=== PATIENT | female | born 1980 | race Caucasian/White ===

== ENCOUNTER 2016-05-03 16:15 | Emergency (ER) | payer OTHER ==
[~2016-05-03] VITALS: Ht 162.6 cm; Wt 101.5 kg
[2016-05-03 16:28] VITALS: BP 140/94
== END 2016-05-03 20:14 | disposition left against medical advice (07) ==
LOC: EMS 16:16
DX: R51 Headache (principal); Z53.21 Procedure and treatment not carried out due to patient leaving prior to being seen by health care provider

== ENCOUNTER 2016-10-08 20:22 | Emergency (ER) | payer OTHER ==
[~2016-10-08] VITALS: Ht 160 cm; Wt 101.5 kg
[2016-10-08 20:42] VITALS: BP 139/96
== END 2016-10-08 21:27 | disposition home or self-care (01) ==
LOC: EMS 20:57
DX: B07.0 Plantar wart (principal); R03.0 Elevated blood-pressure reading, without diagnosis of hypertension; Z88.6 Allergy status to analgesic agent; Z90.49 Acquired absence of other specified parts of digestive tract
CPT/HCPCS: 99281

== ENCOUNTER 2022-02-12 15:33 | Emergency (ER) | payer MEDICAID, OTHER ==
[~2022-02-12] VITALS: Ht 160 cm; Wt 100.0 kg
[2022-02-12] MEDS ORDERED: ASPI-1444 PO (15:46)
[2022-02-12] MEDS ORDERED: DULA1.5P SQ (15:46)
[2022-02-12] MEDS ORDERED: SUMA50TA17 PO (15:46)
[2022-02-12] MEDS ORDERED: INSU100I68 SQ (15:46)
[2022-02-12] MEDS ORDERED: METF-446 PO (15:46)
[2022-02-12] MEDS ORDERED: EMPA25TA3 PO (15:46)
[2022-02-12 16:06] LABS: BASOPHILS % (AUTO) 0.3 % (0.0-2.0); EOSINOPHILS % (AUTO) 0.4 % (1.0-6.0); HEMATOCRIT 42.9 % (36-46); HEMOGLOBIN 13.7 g/dL (12.0-16.0); LYMPHOCYTES % (AUTO) 6.1 % (22.0-44.0); MEAN CORPUSCULAR HEMOGLOBIN 26.7 pg (26.0-34.0); MEAN CORPUSCULAR HGB CONC 31.9 G/dL (31.0-37.0); MEAN CORPUSCULAR VOLUME 84 fL (80-100); MONOCYTES # (AUTO) 0.5 K/uL (0.1-1.0); MONOCYTES % (AUTO) 2.9 % (2.0-9.0); NEUTROPHILS # (AUTO) 14.9 K/uL (1.8-7.7); PLATELET COUNT (AUTO) 321 K/uL (150-450); RED BLOOD CELL COUNT(AUTO) 5.12 MIL/uL (4.00-5.20); RED CELL DISTRIBUTION WIDTH 14.8 % (11.5-14.5)
[2022-02-12 16:11] LABS: NEUTROPHILS % (AUTO) 90.3 % (40.0-70.0)
[2022-02-12] MEDS ORDERED: ACETAMINOPHEN 500 MG TABLET PO ONE (16:15)
[2022-02-12] MEDS ORDERED: SODIUM CHLORIDE 0.9% 1,000 ML IV ONE (16:15)
[2022-02-12 16:19] LABS: ANION GAP 11 mmol/L (8-16); CARBON DIOXIDE 24 mmol/L (22-29); CHLORIDE 101 mmol/L (98-107); GLUCOSE,RANDOM 157 mg/dL (70-110); SODIUM SERUM 136 mmol/L (136-145); UREA NITROGEN, BLOOD 15 mg/dL (7-18)
[2022-02-12 16:20] LABS: GLOMERULAR FILTR. RATE CALC > 60 mL/min (>60)
[2022-02-12 16:42] LABS: ALANINE AMINOTRANSFERASE 21 U/L (12-78); ALKALINE PHOSPHATASE 87 U/L (46-116); ASPARTATE AMINOTRANSFERASE 16 U/L (15-37); BILIRUBIN,TOTAL 0.9 mg/dL (0.1-1.0); CREATINE KINASE, TOTAL ONLY 66 U/L (26-192); HCG,QUANTITATIVE < 1 mIU/mL (0-6); TOTAL PROTEIN, SERUM 9.1 g/dL (6.4-8.2)
[2022-02-12 16:51] LABS: B-TYPE NATRIURETIC PEPTIDE < 5 pg/mL (0-100)
[2022-02-12 17:30] LABS: APPEARANCE,URINE HAZY (CLEAR); BILIRUBIN,URINE NEGATIVE (NEGATIVE); GLUCOSE, URINE (UA) >=1000 mg/dL (NEGATIVE); KETONES,URINE 40-60 mg/dL (NEGATIVE); LEUKOCYTE ESTERASE ,URINE LARGE (NEGATIVE); NITRATE,URINE NEGATIVE (NEGATIVE); OCCULT BLOOD,URINE NEGATIVE (NEGATIVE); PH,URINE 5.5 (5.0-8.0); PROTEIN,URINE TRACE mg/dL (NEGATIVE); SPECIFIC GRAVITIY, URINE 1.049 (1.003-1.030); UROBILINOGEN,URINE <=1.0 mg/dL (<=1.0)
[2022-02-12] MEDS ORDERED: CYCLOBENZAPRINE HCL 10 MG TABLET PO ONE (17:30)
[2022-02-12] MEDS ORDERED: METOCLOPRAMIDE HCL 5 MG/ML 2 ML VIAL IVP ONE (17:30)
[2022-02-12] MEDS ORDERED: DiphenhydrAMINE HCL 50 MG/ML VIAL IVP ONE (17:30)
[2022-02-12 17:57] LABS: COVID AG,FIA SOURCE NASAL SWAB
[2022-02-12 17:59] LABS: RBC,URINE 0-2 /HPF (0-2)
[2022-02-12 18:00] LABS: AMORPHOUS SEDIMENT,UR Few /LPF (None Seen); BACTERIA,URINE Few /HPF (None Seen); SQUAMOUS EPITHELIAL CELL,UR Few /LPF (None Seen)
[2022-02-12 18:13] LABS: INFLUENZA TYPE A NEGATIVE FOR TYPE A (NEGATIVE); INFLUENZA TYPE B NEGATIVE FOR TYPE B (NEGATIVE)
[2022-02-12] MEDS ORDERED: SULFAMETHOX/TRIMETH DS 800-160 MG/TABLET PO ONE (18:30)
[2022-02-12 19:48] VITALS: BP 131/87
[2022-02-12] MEDS ORDERED: SULF-261 PO (19:49)
== END 2022-02-12 20:03 | disposition home or self-care (01) ==
LOC: EMS 15:55
DX: N39.0 Urinary tract infection, site not specified (principal); G43.909 Migraine, unspecified, not intractable, without status migrainosus; R07.9 Chest pain, unspecified; E11.9 Type 2 diabetes mellitus without complications; Z88.5 Allergy status to narcotic agent; Z88.6 Allergy status to analgesic agent; Z90.49 Acquired absence of other specified parts of digestive tract; Z98.51 Tubal ligation status; Z20.822 Contact with and (suspected) exposure to COVID-19
CPT/HCPCS: 99285; 96374; 71045; 96361; 96375; 87426; 80053; 81001; 82550; 82962; 83880; 84484; 84702; 85025; 85379; 87804; 36415; 87086; 87186; 93005; J1200; J2765; J7030

== ENCOUNTER 2022-06-06 15:55 | Emergency (ER) | payer MEDICAID ==
[~2022-06-06] VITALS: Ht 177.8 cm; Wt 95.9 kg
[~2022-06-06 15:55] MED LIST: ASPI-1444 PO; DULA1.5P SQ; EMPA25TA3 PO; INSU100I68 SQ; METF-446 PO; SULF-261 PO; SUMA50TA17 PO
[2022-06-06 15:57] VITALS: BP 150/94
[2022-06-06] MEDS ORDERED: HYDROCODONE/ACETAMINOPHEN 5-325 MG TABLET PO ONE (18:45)
[2022-06-06] MEDS ORDERED: DIAZ2TAB3 PO (18:50)
[2022-06-06] MEDS ORDERED: CYCL-448 PO (19:46)
== END 2022-06-06 20:04 | disposition home or self-care (01) ==
LOC: EMS 15:55
DX: S13.4XXA Sprain of ligaments of cervical spine, initial encounter (principal); E11.9 Type 2 diabetes mellitus without complications; G43.909 Migraine, unspecified, not intractable, without status migrainosus; Z90.49 Acquired absence of other specified parts of digestive tract; Z98.51 Tubal ligation status; Z88.6 Allergy status to analgesic agent; Z88.5 Allergy status to narcotic agent; V49.9XXA Car occupant (driver) (passenger) injured in unspecified traffic accident, initial encounter; Y93.89 Activity, other specified; Y92.89 Other specified places as the place of occurrence of the external cause; Y99.8 Other external cause status
CPT/HCPCS: 72040; 72072; 82962; 99283

== ENCOUNTER 2023-02-05 13:23 | Emergency (ER) | payer MEDICAID ==
[~2023-02-05] VITALS: Ht 160 cm; Wt 96.8 kg
[~2023-02-05 13:23] MED LIST changes: +CYCL-448 PO; +DIAZ2TAB3 PO; -INSU100I68 SQ; -SULF-261 PO; -SUMA50TA17 PO
[2023-02-05 14:37] LABS: BASOPHILS % (AUTO) 0.1 % (0.0-2.0); EOSINOPHILS % (AUTO) 2.1 % (1.0-6.0); HEMATOCRIT 35.8 % (36-46); HEMOGLOBIN 11.7 g/dL (12.0-16.0); LYMPHOCYTES # (AUTO) 2.4 K/uL (1.0-4.8); LYMPHOCYTES % (AUTO) 20.4 % (22.0-44.0); MEAN CORPUSCULAR HGB CONC 32.8 G/dL (31.0-37.0); MEAN CORPUSCULAR VOLUME 85 fL (80-100); MONOCYTES # (AUTO) 0.6 K/uL (0.1-1.0); MONOCYTES % (AUTO) 5.1 % (2.0-9.0); NEUTROPHILS # (AUTO) 8.6 K/uL (1.8-7.7); NEUTROPHILS % (AUTO) 72.3 % (40.0-70.0); PLATELET COUNT (AUTO) 297 K/uL (150-450); RED CELL DISTRIBUTION WIDTH 14.3 % (11.5-14.5); WHITE BLOOD COUNT (AUTO) 11.9 K/uL (4.5-11.0)
[2023-02-05 14:48] LABS: ANION GAP 5 mmol/L (8-16); CALCIUM, TOTAL 8.7 mg/dL (8.8-10.5); CARBON DIOXIDE 31 mmol/L (22-29); CHLORIDE 105 mmol/L (98-107); CREATININE 0.78 mg/dL (0.60-1.30); GLOMERULAR FILTR. RATE CALC > 60 mL/min (>60); GLUCOSE,RANDOM 145 mg/dL (70-110); POTASSIUM 3.9 mmol/L (3.5-5.1); SODIUM SERUM 141 mmol/L (136-145); UREA NITROGEN, BLOOD 13 mg/dL (7-18)
[2023-02-05 14:54] LABS: TROPONIN I-HIGH SENSITIVITY 5 ng/L (<51)
[2023-02-05 14:55] LABS: ALANINE AMINOTRANSFERASE 23 U/L (12-78); ALBUMIN 3.3 g/dL (3.4-5.0); ALKALINE PHOSPHATASE 78 U/L (46-116); ASPARTATE AMINOTRANSFERASE 14 U/L (15-37); BILIRUBIN,TOTAL 0.3 mg/dL (0.1-1.0)
[2023-02-05 14:56] VITALS: TEMP 98.2
[2023-02-05] MEDS ORDERED: SODIUM CHLORIDE 0.9% 1,000 ML IV ONE (15:15)
[2023-02-05] MEDS ORDERED: ACETAMINOPHEN 500 MG TABLET PO ONE (15:15)
[2023-02-05 15:22] LABS: COVID AG,FIA SOURCE NASAL SWAB
[2023-02-05] MEDS ORDERED: CYCL7.5T27 PO (15:22)
[2023-02-05] MEDS ORDERED: SUMA50TA17 PO (15:22)
[2023-02-05 15:45] VITALS: BP 124/61; PULSE 71; RESP 17
[2023-02-05 15:49] LABS: SARS-COV2 (COVID) ANTIGEN,FIA Negative (Negative)
[2023-02-05 16:06] LABS: INFLUENZA TYPE A NEGATIVE FOR TYPE A (NEGATIVE)
[2023-02-05 16:07] LABS: INFLUENZA TYPE B POSITIVE FOR TYPE B (NEGATIVE)
[2023-02-05] MEDS ORDERED: AZIT-103 PO (16:12)
[2023-02-05] MEDS ORDERED: AZITHROMYCIN 500 MG TABLET PO ONE (16:15)
== END 2023-02-05 16:51 | disposition home or self-care (01) ==
LOC: EMS 13:25
DX: J18.9 Pneumonia, unspecified organism (principal); R07.89 Other chest pain; E11.9 Type 2 diabetes mellitus without complications; G43.909 Migraine, unspecified, not intractable, without status migrainosus; Z90.49 Acquired absence of other specified parts of digestive tract; Z98.51 Tubal ligation status; Z20.822 Contact with and (suspected) exposure to COVID-19; Z88.5 Allergy status to narcotic agent; Z88.6 Allergy status to analgesic agent
CPT/HCPCS: 99285; 96360; 71045; 87426; 80053; 82962; 84484; 84703; 85025; 85379; 87804; 36415; 93005; Q9967; J7030